=== PATIENT | female | born 1975 | race Two or more races ===

== ENCOUNTER 2023-08-02 16:40 | Emergency (ER) | payer SELFPAY ==
[2023-08-02 16:49] VITALS: BP 170/90; PULSE 85; RESP 16; TEMP 37.6; O2SAT 98; BMI 32.7
--- NOTE | 2023-08-02 17:05 | ECG_ITS ---
The [facility] Test Date: 2023-08-02 Pat Name: WILLIAM GONZALEZ Department: Room: - Gender: Female Battery T[employer]: : 1975 Requested By: Order Number: [id number] Reading MD: MAX STEINER Measurements Intervals [place] Rate: 71 P: 46 FL: 160 QRS: 3 QRSD: 90 T: 36 QT: 396 QTc: 418 Interpretive Statements 1100 Sinus rhythm 9110 normal ECG No previous ECG available for comparison Electronically Signed On 08-03-2023 7:19:10 EDT by MAX STEINER
[2023-08-02 17:19] VITALS: PULSE 71
--- NOTE | 2023-08-02 17:26 | CT_ITS ---
The [address] [address] Patient Name: WILLIAM GONZALEZ MRN: [id number] date: 1975 Sex: F Assigned Patient Location: ER Current Patient Location: ED.MAIN Accession/Order Number: [id number] Exam Date: 08/02/2023 17:22 Report Date: 08/02/2023 18:00 At the request of: CRISTINE CAST Procedure: CT head/brain wo con EXAM: CT head/brain wo con HISTORY: hypertension, headache COMPARISON: None. TECHNIQUE: Axial CT images of the head were acquired without intravenous contrast. Sagittal and coronal reformats were constructed. FINDINGS: No acute intracranial hemorrhage, mass effect, midline shift or extra-axial fluid collection. There are bilateral basal ganglia calcifications. No sulcal effacement or loss of dominguez/white matter differentiation. No acute osseous abnormality. The paranasal sinuses and mastoid air cells are clear. Orbits and globes are unremarkable. No significant extracranial soft tissue swelling. CT/CT head/brain wo con IMPRESSION: No acute intracranial hemorrhage or mass effect. Electronically authenticated by: YANICK GILBERT Date: 08/02/2023 18:00
[2023-08-02 17:28] LABS: Basophils Percent Auto 0.6 % (0.2-2.0); Eosinophils Absolute Auto 0.2 10^3/uL (0.0-0.7); Eosinophils Percent Auto 2.8 % (0.9-7.0); Hematocrit 41.1 % (36.0-48.0); Immature Granulocytes Abs Auto 0.01 10^3/uL (0.00-0.03); Immature Granulocytes Pct Auto 0.2 % (0.0-0.5); Lymphocytes Absolute Auto 2.5 10^3/uL (1.2-3.8); Lymphocytes Percent Auto 45.2 % (20.5-60.0); Mean Corpuscular HGB Conc 31.6 g/dL (29.9-35.2); Mean Corpuscular Hemoglobin 26.1 pg (26.7-34.0); Mean Corpuscular Volume 82.4 fL (81.0-99.0); Mean Platelet Volume 9.9 fL (9.5-13.5); Monocytes Absolute Auto 0.3 10^3/uL (0.3-0.8); Monocytes Percent Auto 5.2 % (1.7-12.0); Neutrophils Absolute Auto 2.5 10^3/uL (1.4-6.5); Platelet Count 295 10^3/uL (150-450); Red Blood Count 4.99 10^6/uL (4.20-5.40); Red Cell Distribution Width 14.5 % (11.0-15.0); White Blood Count 5.4 10^3/uL (4.0-11.0)
[2023-08-02 17:36] LABS: BUN Creatinine Ratio 18.5; Calcium 9.3 mg/dL (8.5-10.1); Carbon Dioxide 28.8 mmol/L (21.0-32.0); Chloride 101 mmol/L (98-107); Estimated GFR (African America >60 (>=60); Estimated GFR (Non-African Ame >60 (>=60); Glucose 269 mg/dL (74-106); Potassium 3.8 mmol/L (3.5-5.1); Sodium 140 mmol/L (136-145)
[2023-08-02 18:10] VITALS: BP 150/98
--- NOTE | 2023-08-02 18:20 | ED_ITS ---
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[employer] Mode of arrival: walk-in Related Data Home Medications Medication Instructions Recorded Confirmed metformin 500 mg tablet 500 mg PO BID 08/02/23 08/02/23 Previous Rx's Medication Instructions Recorded amlodipine 5 mg tablet (Norvasc) 5 mg PO DAILY #30 tabs 08/02/23 Allergies Allergy/AdvReac Type Severity Reaction Status Date / Time No Known Drug Allergies Allergy Verified 08/02/23 16:49 Exam Constitutional Vital Signs, click to edit/add: Last Vital Signs Temp 99.6 F 08/02/23 16:49 Pulse 85 08/02/23 16:49 Resp 16 08/02/23 16:49 BP 150/98 H 08/02/23 18:10 Pulse Ox 98 08/02/23 16:49 O2 Del Method Room Air 08/02/23 16:49 Course Vital Signs Vital signs: Vital Signs Temperature 99.6 F 08/02/23 16:49 Pulse Rate 85 08/02/23 16:49 Respiratory Rate 16 08/02/23 16:49 Blood Pressure 170/90 H 08/02/23 16:49 Pulse Oximetry 98 08/02/23 16:49 Oxygen Delivery Method Room Air 08/02/23 16:49 Temperature 99.6 F 08/02/23 16:49 Pulse Rate 85 08/02/23 16:49 Respiratory Rate 16 08/02/23 16:49 Blood Pressure 150/98 H 08/02/23 18:10 Pulse Oximetry 98 08/02/23 16:49 Oxygen Delivery Method Room Air 08/02/23 16:49 Medical Decision Making MDM Narrative Medical decision making narrative: Her workup including CAT scan of brain is negative. Her blood pressure is elevated and she is prescribed Norvasc. She was also given IV Toradol here for pain and was recommended recheck of her blood pressure within a week. Treatment diagnosis and follow-up were discussed with the patient. Differential Diagnosis Differential Diagnosis: essential hypertension, tension headache, intracranial hemorrhage Lab Data Lab results reviewed: Yes I reviewed the patient's lab results Labs: Lab Results 08/02/23 Range/Units 17:18 WBC 5.4 (4.0-11.0) 10^3/uL RBC 4.99 (4.20-5.40) 10^6/uL Hgb 13.0 (12.0-16.0) g/dL Hct 41.1 (36.0-48.0) % MCV 82.4 (81.0-99.0) fL MCH 26.1 L (26.7-34.0) pg MCHC 31.6 (29.9-35.2) g/dL RDW 14.5 (11.0-15.0) % Plt Count 295 (150-450) 10^3/uL MPV 9.9 (9.5-13.5) fL Neut % (Auto) 46.0 (43.0-75.0) % Lymph % (Auto) 45.2 (20.5-60.0) % Isabella % (Auto) 5.2 (1.7-12.0) % Eos % (Auto) 2.8 (0.9-7.0) % Baso % (Auto) 0.6 (0.2-2.0) % Neut # (Auto) 2.5 (1.4-6.5) 10^3/uL Lymph # (Auto) 2.5 (1.2-3.8) 10^3/uL Isabella # (Auto) 0.3 (0.3-0.8) 10^3/uL Eos # (Auto) 0.2 (0.0-0.7) 10^3/uL Baso # (Auto) 0.0 (0.0-0.1) 10^3/uL Abs Immat Gran (auto) 0.01 (0.00-0.03) 10^3/uL Imm/Tot Granulo (auto) 0.2 (0.0-0.5) % Sodium 140 (136-145) mmol/L Potassium 3.8 (3.5-5.1) mmol/L Chloride 101 (98-107) mmol/L Carbon Dioxide 28.8 (21.0-32.0) mmol/L Anion Gap 14.0 BUN 10.0 (7.0-18.0) mg/dL Creatinine 0.54 L (0.55-1.02) mg/dL Est GFR ( Amer) >60 (>=60) Est GFR (Non-Af Amer) >60 (>=60) BUN/Creatinine Ratio 18.5 Glucose 269 H (74-106) mg/dL Calcium 9.3 (8.5-10.1) mg/dL Imaging Data CT brain: Radiologist's impression: Procedure: CT head/brain wo con EXAM: CT head/brain wo con HISTORY: hypertension, headache COMPARISON: None. TECHNIQUE: Axial CT images of the head were acquired without intravenous contrast. Sagittal and coronal reformats were constructed. FINDINGS: No acute intracranial hemorrhage, mass effect, midline shift or extra-axial fluid collection. There are bilateral basal ganglia calcifications. No sulcal effacement or loss of dominguez/white matter differentiation. No acute osseous abnormality. The paranasal sinuses and mastoid air cells are clear. Orbits and globes are unremarkable. No significant extracranial soft tissue swelling. IMPRESSION: No acute intracranial hemorrhage or mass effect. Electronically authenticated by: YANICK GILBERT Date: 08/02/2023 18:00 Discharge Plan Discharge Chief Complaint: Headache Clinical Impression: Headache, Essential hypertension Patient Disposition: Home, Self-Care Time of Disposition Decision: 18:19 Condition: Good Mode of Transportation: Private Vehicle Prescriptions / Home Meds: New amlodipine [Norvasc] 5 mg tablet 5 mg PO DAILY Qty: 30 0RF No Action metformin 500 mg tablet 500 mg PO BID Instructions: Acute Headache (ED), Hypertension (ED), Hypertension and Diabetes (ED) Additional Instructions: Blood pressure recheck within a week Stand Alone Forms: Portal Instructions Referrals: Physician,Non-Staff, MD [Primary Care Provider] - 1 week
[2023-08-02] MEDS: KETOROLAC TROMETHAMINE 30 MG/ML VIAL IVP (18:37)
== END 2023-08-02 18:47 | disposition home or self-care (01) ==
PROVIDERS: Emergency Provider Emergency Medicine
DX: R51.9 Headache, unspecified (principal); I10 Essential (primary) hypertension; Z79.84 Long term (current) use of oral hypoglycemic drugs
CPT/HCPCS: 36415; 70450; 80048; 85025; 93005; 96374; 99285